=== PATIENT | male | born 1960 | race American Indian/Alaskan Native ===

== ENCOUNTER 2016-11-20 10:33 | Emergency (ER) | payer MEDICARE ==
--- NOTE | 2016-11-20 13:50 | Emergency Department Report ---
ED Headache HPI - General Chief Complaint: Dental/Oral Stated Complaint: right jaw swollen, toothache Time Seen by Provider: 11/20/16 13:27 Source: patient - History of Present Illness Timing/Duration: other (3 days) Quality: moderate Recent Head Trauma: other (dental caries) Associated Symptoms: facial pain. denies: confusion, fatigue, fever/chills, flushing, loss of consciousness, nausea/vomiting, nasal congestion, nasal drainage, numbness in legs/feet, rash, seizures, sinus infection (denies), stiff neck, vision changes, weakness Allergies/Adverse Reactions: Allergies No Known Allergies Allergy (Unverified 11/20/16 12:24) Home Medications: Ambulatory Orders Clindamycin [Clindamycin CAP] 300 mg PO Q6H #40 capsule 11/20/16 Fluticasone [Flonase] 1 spray NS QDAY #1 bottle 11/20/16 traMADol [Ultram] 50 mg PO Q6HR PRN #10 tablet 11/20/16 ED Review of Systems ROS: Stated complaint: right jaw swollen, toothache Other details as noted in HPI Comment: All other systems reviewed and negative Constitutional: no symptoms reported, see HPI. denies: chills Eyes: as per HPI. denies: eye pain ENT: as per HPI, dental pain, other (abscess max gum line). denies: ear pain, throat pain, hearing loss, epistaxis, congestion Respiratory: no symptoms reported, see HPI. denies: cough, orthopnea Cardiovascular: as per HPI. denies: chest pain, palpitations, dyspnea on exertion, orthopnea Endocrine: no symptoms reported. denies: see HPI, excessive sweating, flushing , intolerance to cold, intolerance to heat Gastrointestinal: as per HPI. denies: abdominal pain, nausea, vomiting Genitourinary: as per HPI. denies: urgency, dysuria Musculoskeletal: as per HPI. denies: back pain Skin: as per HPI. denies: rash, lesions Neurological: as per HPI, headache. denies: weakness, numbness, paresthesias, confusion Psychiatric: as per HPI. denies: anxiety, depression Hematological/Lymphatic: as per HPI. denies: easy bleeding ED Past Medical Hx - Past Medical History Previous Medical History?: Yes Hx Hypertension: Yes Hx Diabetes: Yes - Surgical History Past Surgical History?: No - Social History Smoking Status: Current Every Day Smoker Substance Use Type: Alcohol - Medications Home Medications: Home Medications Medication Instructions Recorded Confirmed Last Taken Type Clindamycin [Clindamycin CAP] 300 mg PO Q6H #40 capsule 11/20/16 Unknown Rx Fluticasone [Flonase] 1 spray NS QDAY #1 bottle 11/20/16 Unknown Rx traMADol [Ultram] 50 mg PO Q6HR PRN #10 tablet 11/20/16 Unknown Rx ED Physical Exam - General Limitations: No Limitations General appearance: alert - Head Head exam: Present: atraumatic - Eye Eye exam: Present: PERRL - ENT ENT exam: Present: mucous membranes moist, other - Expanded ENT Exam Expanded Mouth exam: Absent: drooling, trismus, muffled voice, tongue normal, tongue elevation, laceration Teeth exam: Present: dental caries 1 - Other (abscess at indicated area w diffuse caries) Throat exam: Positive: normal inspection - Neck Neck exam: Present: normal inspection, lymphadenopathy. Absent: tenderness, meningismus, full ROM, thyromegaly - Respiratory Respiratory exam: Present: normal lung sounds bilaterally. Absent: respiratory distress, wheezes - Cardiovascular Cardiovascular Exam: Present: regular rate - GI/Abdominal GI/Abdominal exam: Present: soft - Rectal Rectal exam: Present: deferred - Extremities Exam Extremities exam: Present: normal inspection, full ROM. Absent: tenderness - Back Exam Back exam: Present: normal inspection, full ROM. Absent: tenderness, CVA tenderness (R) - Neurological Exam Neurological exam: Present: alert, oriented X3, CN II-XII intact, normal gait, reflexes normal - Psychiatric Psychiatric exam: Present: normal affect, normal mood - Skin Skin exam: Present: warm, dry, intact ED Course Vital Signs 11/20/16 11/20/16 12:22 15:21 Temperature 99 F Pulse Rate 84 82 Respiratory 16 18 Rate Blood Pressure 188/118 Blood Pressure 171/73 [Left] O2 Sat by Pulse 100 98 Oximetry - Reevaluation(s) Reevaluation #1: to er today w dental pain ru max area- see diagram small abscess diffuse caries pmh noted bp elevated on admit but trended downward see med list labs noted ct noted clinda iv medicated for pain 11/20/16 15:37 Reevaluation #2: 11/20/16 15:37 updated on labs and poc verbalizes understanding will follow up as instructed referrals given reports feeling much better pt is in no pain at present is smiling controlling secretions and taking po vss. no fever. non toxic ED Medical Decision Making - Lab Data Result diagrams: 11/20/16 13:59 11/20/16 14:01 - Radiology Data Radiology results: image reviewed - Medical Decision Making DENTAL ABSCESS scan w sinusitis labs noted vss nad Critical care attestation.: If time is entered above; I have spent that time in minutes in the direct care of this critically ill patient, excluding procedure time. ED Disposition Clinical Impression: Dental caries, Dental abscess, Hypertension, Diabetes, Sinusitis Disposition: DC- TO HOME OR SELFCARE Is pt being admited?: No Does the pt Need Aspirin: No Condition: Stable Instructions: Diabetes Mellitus Type 2 in Adults (ED), Hypertension (ED) Additional Instructions: good oral care DMD REESE LET THEM KNOW YOU WERE SEEN IN ER FOLLOW UP PCP TO MONITOR YOUR BLOOD PRESSURE MOTRIN OR TYLENOL FOR MILD PAIN ULTRAM FOR SEVERE PAIN ANTIBIOTIC WITH FOOD WE ORDERED HERE TODAY. MONITOR YOUR BLOOD SUGAR Prescriptions: Clindamycin [Clindamycin CAP] 300 mg PO Q6H #40 capsule Fluticasone [Flonase] 1 spray NS QDAY #1 bottle traMADol [Ultram] 50 mg PO Q6HR PRN #10 tablet PRN Reason: Pain Referrals: PRIMARY MD JAY [Primary Care Provider] - 3-5 Days LORY BERNARDO MD [Staff Physician] - 3-5 Days [facility] [Outside] - 3-5 Days [facility] [Outside] - 3-5 Days [facility] [Outside] - 3-5 Days Time of Disposition: 15:26
[2016-11-20 14:11] LABS: Basophils % (Auto) 0.8 % (0.0-1.8); Eosinophils % (Auto) 1.6 % (0.0-4.3); Mean Corpuscular HGB Conc 36 % (32-34); Mean Corpuscular Hemoglobin 31 pg (28-32); Mean Corpuscular Volume 88 fl (84-94); Platelet Count 200 K/mm3 (140-440); Red Blood Count 4.91 M/mm3 (3.65-5.03); Red Cell Distribution Width 13.4 % (13.2-15.2); White Blood Count 9.6 K/mm3 (4.5-11.0)
[2016-11-20 14:15] LABS: Hemoglobin 15.3 gm/dl (11.8-15.2)
[2016-11-20 14:28] LABS: Alanine Aminotransferase 42 units/L (7-56); Albumin 4.3 g/dL (3.9-5); Albumin/Globulin Ratio 1.3 %; Alkaline Phosphatase 74 units/L (35-129); Anion Gap 16 mmol/L; Blood Urea Nitrogen 10 mg/dL (9-20); Calcium 9.2 mg/dL (8.4-10.2); Carbon Dioxide 27 mmol/L (22-30); Chloride 99.1 mmol/L (98-107); Glucose 181 mg/dL (75-100); Potassium 4.6 mmol/L (3.6-5.0); Sodium 137 mmol/L (137-145); Total Protein 7.5 g/dL (6.3-8.2)
--- NOTE | 2016-11-20 14:28 | Cat Scan Report ---
CT HEAD WITHOUT CONTRAST INDICATION: Abscess right maxillary area. COMPARISON: None similar at this institution. FINDINGS: Noncontrast head CT demonstrates normal ventricles and sulci. No acute infarct, hemorrhage, mass effect or midline shift. No abnormal extra axial fluid collections. Minimal, benign bilateral basal ganglia calcifications. Normal posterior fossa with preserved basilar cisterns. Normal eye globes. Rightward nasal septal deviation/approximately 3 mm spur. Pansinusitis noted, right greater than left with least involvement of the left frontal sinus. Clear mastoid air cells. Normal calvarium and skull. Numerous missing teeth. CONCLUSION: No acute intracranial CT abnormality with pansinusitis and few other incidental findings, as above. Thank you for the opportunity to participate in this patient's care.
[2016-11-20] MEDS ORDERED: CLEOCIN 600 MG/50 mL 600 MG/50 ML BAG IV ONE (14:40)
--- NOTE | 2016-11-20 14:45 | Cat Scan Report ---
CT SINUSES WITHOUT CONTRAST INDICATION: Abscess right maxillary area. COMPARISON: None similar. FINDINGS: Noncontrast axial, sagittal and coronal CT reconstructions through the paranasal sinuses demonstrates pansinusitis, right more than left. Clear mastoid air cells. Ostiomeatal complex occluded on the right, though may be patent on the left. Normal imaged intracranial appearance. Normal orbits and eye globes. Symmetric facial/maxillary soft tissues. Numerous anterior maxillary periapical cysts noted measuring up to approximately 6 mm as on axial image 55, series 2. Numerous missing teeth. Intact facial bones and the TMJs. Upper to midcervical facet degenerative changes possible. Multiple cervical lymph nodes with largest jugular chain lymph node on the left measuring approximately 1.5 x 1.1 cm, axial image 19, series 3. CONCLUSION: Pansinusitis and anterior maxillary dental disease/periapical cysts noted with few other findings, as above. No discrete right maxillary abscess seen at this time. Please correlate. Thank you for the opportunity to participate in this patient's care.
[2016-11-20 14:47] LABS: INR 1.09 (0.87-1.13)
[2016-11-20 14:48] LABS: Partial Thromboplastin Time 28.5 Sec. (24.2-36.6)
[2016-11-20] MEDS ORDERED: NORCO 5/325 PO ONE ×2 (15:31→16:04)
[2016-11-20 16:21] LABS: Bilirubin,Urine NEG (Negative); Blood,Urine NEG (Negative); Ketones,Urine NEG (Negative); Leukocyte Esterase,Urine NEG (Negative); Nitrite,Urine NEG (Negative); Protein,Urine <15 mg/dL mg/dL (Negative); Urobilinogen,Urine < 2.0 mg/dL (<2.0)
[2016-11-20 17:33] VITALS: BP 162/75
== END 2016-11-20 17:30 | disposition home or self-care (01) ==
LOC: ED 10:33
DX: K04.7 Periapical abscess without sinus (principal); K02.9 Dental caries, unspecified; I10 Essential (primary) hypertension; E11.9 Type 2 diabetes mellitus without complications; J32.9 Chronic sinusitis, unspecified; F17.200 Nicotine dependence, unspecified, uncomplicated
CPT/HCPCS: 36415; 70450; 70486; 80053; 81001; 82962; 85025; 85610; 85730; 87040; 96365

== ENCOUNTER 2019-03-23 10:53 | Emergency (ER) | payer MEDICARE ==
[2019-03-23 12:08] LABS: Basophils # (Auto) 0.1 K/mm3 (0.0-0.1); Basophils % (Auto) 0.8 % (0.0-1.8); Eosinophils # (Auto) 0.2 K/mm3 (0.0-0.4); Eosinophils % (Auto) 2.2 % (0.0-4.3); Hematocrit 40.7 % (35.5-45.6); Hemoglobin 14.5 gm/dl (11.8-15.2); Lymphocytes # (Auto) 3.3 K/mm3 (1.2-5.4); Lymphocytes % (Auto) 47.9 % (13.4-35.0); Mean Corpuscular HGB Conc 36 % (32-34); Mean Corpuscular Volume 86 fl (84-94); Monocytes # (Auto) 0.6 K/mm3 (0.0-0.8); Monocytes % (Auto) 8.1 % (0.0-7.3); Platelet Count 259 K/mm3 (140-440); Red Blood Count 4.74 M/mm3 (3.65-5.03); Red Cell Distribution Width 14.9 % (13.2-15.2)
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
[2019-03-23 12:17] LABS: INR 1.1 (0.87-1.13); Partial Thromboplastin Time 30.5 Sec. (24.2-36.6)
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
[2019-03-23 12:48] LABS: Alanine Aminotransferase 32 units/L (7-56); Albumin 4.3 g/dL (3.9-5); BUN/Creatinine Ratio 15; Blood Urea Nitrogen 15 mg/dL (9-20); Calcium 9.2 mg/dL (8.4-10.2); Hemolysis Index 3
--- NOTE | 2019-03-23 13:06 | XRay Report ---
CHEST 2 VIEWS INDICATION / CLINICAL INFORMATION: tachycardia. COMPARISON: None available. FINDINGS: SUPPORT DEVICES: None. HEART / MEDIASTINUM: No significant abnormality. LUNGS / PLEURA: No significant pulmonary or pleural abnormality. No pneumothorax. ADDITIONAL FINDINGS: No significant additional findings. IMPRESSION: 1. No acute findings. Signer Name: Eric Christiansen MD Signed: 03/23/2019 1:01 PM Workstation Name: [id number]
[2019-03-23 13:29] LABS: Bilirubin,Urine NEG (Negative); Blood,Urine NEG (Negative); Color,Urine Yellow (Yellow); Protein,Urine <15 mg/dL mg/dL (Negative); RBC,Urine < 1.0 /HPF (0.0-6.0); Urobilinogen,Urine < 2.0 mg/dL (<2.0); WBC,Urine < 1.0 /HPF (0.0-6.0)
[2019-03-23 13:36] LABS: Amphetamine Screen,Urine PRESUMPTIVE NEGATIVE; Benzodiazepines Screen,Urine PRESUMPTIVE NEGATIVE; Cannabinoid Screen,Urine PRESUMPTIVE NEGATIVE; Methadone Screen,Urine PRESUMPTIVE NEGATIVE; Opiate Screen,Urine PRESUMPTIVE NEGATIVE
[2019-03-23] MEDS: SODIUM CHLORIDE 0.9% 1000 ML 1,000 ML IV ONE (13:46)
[2019-03-23 13:50] LABS: Cocaine Screen,Urine PRESUMPTIVE POSITIVE
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
[2019-03-23 17:26] VITALS: BP 141/100
== END 2019-03-23 17:35 | disposition home or self-care (01) ==
LOC: ED 10:53
DX: F14.10 Cocaine abuse, uncomplicated (principal); R49.0 Dysphonia; Z72.89 Other problems related to lifestyle; I10 Essential (primary) hypertension; E11.9 Type 2 diabetes mellitus without complications; F17.200 Nicotine dependence, unspecified, uncomplicated; Z79.899 Other long term (current) drug therapy; V89.2XXA Person injured in unspecified motor-vehicle accident, traffic, initial encounter; Y93.89 Activity, other specified; Y92.488 Other paved roadways as the place of occurrence of the external cause; Y99.8 Other external cause status
CPT/HCPCS: 36415; 70450; 71045; 71250; 71275; 72125; 74174; 74176; 80053; 80307; 81001; 82550; 83735; 83880; 84484; 85025; 85610; 85730; 93005; 93010; 99285; J7030; Q9967

== ENCOUNTER 2019-04-17 22:36 | Emergency (ER) | payer MEDICARE ==
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
[2019-04-18 02:43] VITALS: BP 139/69
[2019-04-18] MEDS ORDERED: ACETAMINOPHEN 500 MG TAB ONE (02:50)
[2019-04-18] MEDS ORDERED: ACETAMINOPHEN 500 MG TAB PO ONE (02:53)
== END 2019-04-18 04:13 | disposition home or self-care (01) ==
LOC: ED 22:36
DX: S00.83XA Contusion of other part of head, initial encounter (principal); I10 Essential (primary) hypertension; E11.9 Type 2 diabetes mellitus without complications; F17.200 Nicotine dependence, unspecified, uncomplicated; Z79.899 Other long term (current) drug therapy; Y04.0XXA Assault by unarmed brawl or fight, initial encounter; Y93.89 Activity, other specified; Y92.89 Other specified places as the place of occurrence of the external cause; Y99.8 Other external cause status
CPT/HCPCS: 70450; 70486